=== PATIENT | female | born 2000 | race Caucasian/White ===

== ENCOUNTER 2023-03-07 08:14 | Inpatient (IN) | payer BC ==
[2023-03-07] MEDS ORDERED: Butorphanol 1 MG/ML SDV IVPUSH PRN (10:14)
[2023-03-07] MEDS ORDERED: Sodium Chloride 0.9% 20 ML SDV IV PRN (10:14)
[2023-03-07] MEDS ORDERED: Misoprostol 200 MCG Tab PO PRN (10:14)
[2023-03-07] MEDS ORDERED: Sodium Chloride 0.9% 10 ML Syringe FLUSH PRN (10:14)
[2023-03-07] MEDS ORDERED: Tranexamic Acid IN NACL,ISO-OS 1,000 MG in Premix Bag 1 BAG IV PRN ×2 (10:14)
[2023-03-07] MEDS ORDERED: Misoprostol 25 MCG (1/4 of 100 MCG) Tab VAG PRN ×2 (10:14)
[2023-03-07] MEDS ORDERED: Methylergonovine 0.2 MG/1 ML Amp IM PRN (10:14)
[2023-03-07] MEDS ORDERED: Lidocaine 1% 50 ML MDV INJECT PRN (10:14)
[2023-03-07] MEDS ORDERED: Water For Irrigation,Sterile 1,000 ML Container IRR PRN (10:14)
[2023-03-07] MEDS ORDERED: Sodium Chloride 0.9% 2.5 ML Syringe FLUSH PRN (10:14)
[2023-03-07] MEDS ORDERED: Ondansetron 4 MG/2 ML SDV IVPUSH PRN (10:14)
[2023-03-07] MEDS ORDERED: Carboprost Tromethamine 250 MCG/1 mL Vial IM PRN (10:14)
[2023-03-07] MEDS ORDERED: Terbutaline 1 MG/ML SDV SUBCUT PRN (10:14)
[2023-03-07] MEDS ORDERED: Oxytocin/0.9 % Sodium Chloride 30 UNIT/500 ML BAG IV SCH ×2 (10:15)
[2023-03-07] MEDS: Lactated Ringers 1,000 ML IV SCH ×3 (10:50→18:47)
[2023-03-07 11:07] LABS: HEMATOCRIT 36.9 % (36.0-46.0); MEAN CORPUSCULAR HGB CONC 35.2 g/dL (31.0-37.0); MEAN CORPUSCULAR VOLUME 87.9 fL (80.0-98.0); MEAN PLATELET VOLUME 11.7 fL (7.40-12.00); RED BLOOD CELL COUNT 4.2 M/uL (4.30-5.90); WHITE BLOOD CELL COUNT,WBC 9.02 K/uL (4.0-11.0)
[2023-03-07] MEDS: Nalbuphine 10 MG/0.5 ML Syringe IVPUSH PRN ×2 (15:02→16:59)
[2023-03-07] MEDS ORDERED: Bupivacaine 0.5% 10 ML SDV ONE (18:19)
[2023-03-07] MEDS ORDERED: Ropivacaine/PF 400 MG/200 ML PCA ONE (18:20)
[2023-03-07] MEDS ORDERED: ePHEDrine 50 MG/ML SDV IVPUSH PRN ×2 (18:42)
[2023-03-07] MEDS ORDERED: Phenylephrine HCl 0.5 MG/5 ML AMP IVPUSH PRN (18:42)
[2023-03-07] MEDS ORDERED: Ropivacaine HCl/PF 400 MG in Premix Bag 1 BAG EPIDUR SCH (18:45)
[2023-03-08] MEDS ORDERED: oxyCODONE 5 MG Tab PO PRN (00:31)
[2023-03-08] MEDS ORDERED: Bisacodyl 10 MG Supp RECTAL PRN (00:31)
[2023-03-08] MEDS ORDERED: Ibuprofen 400 MG Tab PO PRN (00:31)
[2023-03-08] MEDS ORDERED: Docusate Sodium 100 MG Cap PO PRN (00:31)
[2023-03-08] MEDS ORDERED: Acetaminophen 500 MG Tab PO PRN (00:31)
[2023-03-08] MEDS ORDERED: Lanolin 100% Cream 7 GM Tube TOP PRN (00:31)
[2023-03-08 00:37] LABS: PH,UMBILICAL ARTERIAL 7.188 (7.18-7.38); PH,UMBILICAL VENOUS 7.251 (7.25-7.45)
[2023-03-08] MEDS: Witch Hazel Medicated Pads 40/Jar TOP PRN ×2 (00:56→18:20)
[2023-03-08] MEDS: Benzocaine/Menthol 20%-0.5% Spray 78 GM Cannister TOP PRN (00:57)
[2023-03-08] MEDS: Ibuprofen 800 MG Tab PO PRN ×2 (06:25→15:26)
[2023-03-08] MEDS: Acetaminophen 500 MG Tab PO PRN ×2 (10:25→19:48)
[2023-03-08 15:26] LABS: HEMATOCRIT 33.8 % (36.0-46.0); HEMOGLOBIN 11.8 g/dL (12.0-16.0)
[2023-03-09] MEDS: Ibuprofen 800 MG Tab PO PRN (01:20)
[2023-03-09] MEDS: Benzocaine/Menthol 20%-0.5% Spray 78 GM Cannister TOP PRN (13:39)
[2023-03-09] MEDS: Witch Hazel Medicated Pads 40/Jar TOP PRN (13:41)
== END 2023-03-09 14:22 | disposition home or self-care (01) | DRG 560 ==
LOC: MW.OBCHECK 08:14 → MW.OB 08:16 → MW.OBCHECK 10:14 → OBSVTOIN 23:59 → MW.OB 03-08 04:41
PROVIDERS: ADMIT Obstetrics & Gynecology; ATTEND Obstetrics & Gynecology
PROC: 10E0XZZ Delivery of Products of Conception, External Approach (ICD-10-PCS; principal; 2023-03-08)
PROC: 0KQM0ZZ Repair Perineum Muscle, Open Approach (ICD-10-PCS; 2023-03-08)
PROC: 3E0R3BZ Introduction of Anesthetic Agent into Spinal Canal, Percutaneous Approach (ICD-10-PCS; 2023-03-08)
PROC: 00HU33Z Insertion of Infusion Device into Spinal Canal, Percutaneous Approach (ICD-10-PCS; 2023-03-08)
DX: O42.02 Full-term premature rupture of membranes, onset of labor within 24 hours of rupture (principal); O70.1 Second degree perineal laceration during delivery; Z3A.38 38 weeks gestation of pregnancy; Z37.0 Single live birth
CPT/HCPCS: 01967; 36415; 51702; 59025; 59409; 82803; 84112; 85014; 85018; 85027; 86592; 86850; 86900; 86901; A9270-GY; J2300; J2405; J2590; J2795; J3490; J7120

== ENCOUNTER 2025-06-02 17:32 | Inpatient (IN) | payer BC ==
[2025-06-02] MEDS ORDERED: Butorphanol 1 MG/ML SDV IVPUSH PRN (18:56)
[2025-06-02] MEDS ORDERED: Misoprostol 25 MCG (1/4 of 100 MCG) Tab VAG PRN ×2 (18:56)
[2025-06-02] MEDS ORDERED: Terbutaline 1 MG/ML SDV SUBCUT PRN (18:56)
[2025-06-02] MEDS ORDERED: Sodium Chloride 0.9% 2.5 ML Syringe FLUSH PRN (18:56)
[2025-06-02] MEDS ORDERED: Water For Irrigation,Sterile 1,000 ML Container IRR PRN (18:56)
[2025-06-02] MEDS ORDERED: Sodium Chloride 0.9% 10 ML Syringe FLUSH PRN (18:56)
[2025-06-02] MEDS ORDERED: Carboprost Tromethamine 250 MCG/1 mL Vial IM PRN (18:56)
[2025-06-02] MEDS ORDERED: Oxytocin/0.9 % Sodium Chloride 30 UNIT/500 ML BAG IV SCH (19:00)
[2025-06-02 19:51] LABS: MEAN PLATELET VOLUME 10.8 fL (9.4-12.3); NRBC ABSOLUTE 0.00 K/uL (0.00-0.02); NRBC PERCENT 0.0 /100WBC (0.0-0.2); PLATELET COUNT,PLT 204 K/uL (150-400); RED BLOOD CELL COUNT 4.19 M/uL (4.10-5.30); WHITE BLOOD CELL COUNT,WBC 12.73 K/uL (3.9-11.3)
[2025-06-02] MEDS ORDERED: Nalbuphine 10 MG/1 ML Vial IVPUSH PRN (21:20)
[2025-06-02] MEDS ORDERED: dexmedeTOMIDine HCl 200 MCG/2 ML SDV ONE (21:45)
[2025-06-02] MEDS: Lactated Ringers 1,000 ML IV SCH (21:46)
[2025-06-02] MEDS ORDERED: Ropivacaine HCl/PF 200 ML ONE (21:46)
[2025-06-02] MEDS ORDERED: Ondansetron 4 MG/2 ML SDV IVPUSH PRN (21:47)
[2025-06-02] MEDS: Ropivacaine HCl/PF 400 MG in Premix Bag 1 BAG EPIDUR SCH (22:00)
[2025-06-02] MEDS ORDERED: ePHEDrine 50 MG/ML SDV IVPUSH PRN (22:06)
[2025-06-02] MEDS ORDERED: dexmedeTOMIDine HCl 200 MCG/2 ML SDV EPIDUR SCH (22:15)
[2025-06-02] MEDS: Oxytocin/0.9 % Sodium Chloride 30 UNIT/500 ML BAG IV SCH (23:20)
[2025-06-03 03:23] LABS: PH,UMBILICAL ARTERIAL 7.32 (7.18-7.38); PH,UMBILICAL VENOUS 7.38 (7.25-7.45)
[2025-06-03] MEDS: Lanolin 100% Cream 7 GM Tube TOP PRN (07:45)
[2025-06-03] MEDS: Witch Hazel Medicated Pads 40/Jar TOP PRN (07:46)
[2025-06-03] MEDS: Benzocaine/Menthol 20%-0.5% Spray 78 GM Cannister TOP PRN (07:46)
== END 2025-06-04 10:50 | disposition home or self-care (01) | DRG 560 ==
LOC: MW.OB 17:32 → MW.OBCHECK 17:32 → MW.OB 18:56 → MW.OBCHECK 18:56 → OBSVTOIN 06-03 02:47 → MW.OB 06-03 08:20
PROVIDERS: ADMIT Obstetrics & Gynecology; ATTEND Obstetrics & Gynecology
PROC: 10E0XZZ Delivery of Products of Conception, External Approach (ICD-10-PCS; principal; 2025-06-03)
PROC: 0HQ9XZZ Repair Perineum Skin, External Approach (ICD-10-PCS; 2025-06-03)
PROC: 4A0HXCZ Measurement of Products of Conception, Cardiac Rate, External Approach (ICD-10-PCS; 2025-06-03)
DX: O87.1 Deep phlebothrombosis in the puerperium (principal); Z3A.39 39 weeks gestation of pregnancy; Z37.0 Single live birth; O70.0 First degree perineal laceration during delivery
CPT/HCPCS: 36415; 51702; 59025; 59409; 82803; 85014; 85018; 85027; 86592; 86850; 86900; 86901; A9270-GY; J0665; J1650; J2590; J2795; J7120